=== PATIENT | female | born 1935 | race Caucasian/White ===

== ENCOUNTER → 2016-09-04 | Outpatient (REF) ==
[~2016-09-04] MED LIST: ASPIR-LOW81 MG PO; ASPIRIN E.C. 8181 MG PO; CALCIUM + D 6001 TA1 PO; CLARITIN 1010 MG/TAB PO; D3-5050000 IU PO; FLONASE NASAL S16 GM NS; MAXZIDE-25MG TA1 TAB PO; TRIAMTERENE W/H1 CAP PO; ZYRTEC 10MG PO
== END ==
LOC: ZLAB.WCH 14:55
DX: Z01.89 Encounter for other specified special examinations (principal)

== ENCOUNTER → 2017-01-04 | Outpatient (CLI) | payer MEDICARE, OTHER | LOC: COL.PUL 10:58 | DX: J84.112 Idiopathic pulmonary fibrosis (principal) ==

== ENCOUNTER → 2017-03-23 | Outpatient (REF) | LOC: ZLAB.WCH 18:00 | DX: Z01.89 Encounter for other specified special examinations (principal) ==

== ENCOUNTER → 2017-08-01 | Outpatient (CLI) | payer MEDICARE, OTHER | LOC: COL.PUL 07:47 | DX: R06.00 Dyspnea, unspecified (principal); R93.8 Abnormal findings on diagnostic imaging of other specified body structures; J84.10 Pulmonary fibrosis, unspecified; Z88.1 Allergy status to other antibiotic agents; Z88.2 Allergy status to sulfonamides ==

== ENCOUNTER → 2017-08-30 | Outpatient (CLI) | payer MEDICARE, OTHER | LOC: COL.PUL 12:39 | DX: R06.00 Dyspnea, unspecified (principal); R93.8 Abnormal findings on diagnostic imaging of other specified body structures; J84.10 Pulmonary fibrosis, unspecified ==

== ENCOUNTER → 2017-10-25 | Outpatient (REF) | LOC: ZLAB.WCH 16:02 | DX: Z01.89 Encounter for other specified special examinations (principal) ==

== ENCOUNTER → 2018-02-06 | Outpatient (REF) | LOC: ZLAB.WCH 15:53 | DX: Z01.89 Encounter for other specified special examinations (principal) ==

== ENCOUNTER → 2018-04-04 | Outpatient (REF) ==
[2018-04-04 15:03] LABS: THYROID STIMULATING HORMONE 2.51 uIU/mL (0.465-4.680)
== END ==
LOC: ZLAB.WCH 14:11
PROVIDERS: Internal Medicine
DX: Z01.89 Encounter for other specified special examinations (principal)

== ENCOUNTER → 2018-07-30 | Outpatient (REF) | LOC: ZLAB.WCH 16:19 | DX: Z01.89 Encounter for other specified special examinations (principal) ==

== ENCOUNTER 2019-10-13 14:47 | Inpatient (IN) | payer MEDICARE, OTHER ==
[~2019-10-13] VITALS: Ht 165.1 cm; Wt 94.3 kg
--- NOTE | 2019-10-13 14:56 | NUR ---
REPORT FROM SANG FREDERICK.
[2019-10-13] MEDS ORDERED: COZAAR 50MG50 MG/TAB PO (15:23)
[2019-10-13] MEDS ORDERED: PRIL40 PO (15:25)
[2019-10-13] MEDS ORDERED: VITAMIN C500 MG PO (15:26)
[2019-10-13] MEDS ORDERED: FERROCITE324 MG PO (15:27)
[2019-10-13] MEDS ORDERED: MULTIPLE VITAMI1 CAP PO (15:28)
[2019-10-13 19:00] VITALS: BP 114/43; PULSE 68; TEMP 97.7
--- NOTE | 2019-10-13 20:15 | NUR ---
Pt. sitting up in bed at this time. Pt. is A&OX3, assessment complete. IV to rt. ac patent, IV fluids infusing per orders. Pt. denies pain. Informed pt. that we will be giving her a unit of PRBC's and got consent form signed. Pt. denies further needs, call light within reach.
[2019-10-13 23:01] VITALS: BP 132/52; PULSE 91; TEMP 98.3
[2019-10-14] VITALS (21 sets, daily range): BP systolic 83–146; BP diastolic 30–94; PULSE 53–111; TEMP 97.9–98.7
--- NOTE | 2019-10-14 00:20 | NUR ---
One unit of PRBC's started at this time. Reviewed the s/s of blood transfusion reactions with the pt. The pt. voices understanding. VSS. WIll remain with pt. for first 15 minutes.
[2019-10-14 07:29] LABS: CALCIUM 8.2 mg/dL (8.4-10.2); CREATININE, serum 1.56 (0.52-1.25); POTASSIUM 4.8 mmol/L (3.4-5.0)
[2019-10-14 07:34] LABS: BASO # 0.1 (0.0-0.2); BASO % 0.4 % (0.0-2.0); EOS # 0.7 (0.0-0.7); EOS % 5.7 % (0-4.0); GRAN # 7.5 (1.4-6.5); GRAN % 61.4 % (42.2-75.2); LYMPH # 2.9 (1.2-3.4); LYMPH % 23.4 % (20.0-51.0); MEAN CELL VOLUME 95 fl (80.0-100.0); MEAN CORPUSCULAR HGB CONC 31 g/dl (33.0-37.0); PLATELET COUNT 196 K/mm3 (130-400); RED BLOOD COUNT 2.35 M/mm3 (4.10-5.30); REDCELL DISTRIBUTION WIDTH-CV 17.8 % (11.5-14.5)
[2019-10-14 07:43] LABS: HEMATOCRIT 22.3 % (37.0-47.0); MEAN CORPUSCULAR HEMOGLOBIN 30 pg (27.0-31.0)
[2019-10-14 08:48] LABS: HEMATOCRIT 21.7 % (37.0-47.0)
[2019-10-14 08:49] LABS: HEMOGLOBIN 6.7 g/dl (12.5-16.0)
--- NOTE | 2019-10-14 08:57 | NUR ---
Assessment complete. Pt sitting in bed, awake and alert watching television. States that she feels pretty good. We discussed her procedure today, she agreed to the upper GI EGD but refused a colonoscopy. She is aware of the proceduer today. She denies pain or discomfort at this time. IV site is CD&I, flushed well. Tubing was changed from blood tubing to fresh tubing with new bag of fluids. No other needs were expressed at this time. Call light is in reach.
--- NOTE | 2019-10-14 09:58 | NUR ---
MOHAMUD met with the patient to discuss discharge plan. The patient lives in [place] with her , José Miguel (ph#[phone]). She reports independence with ADLs and has a cane and CPAP from [facility] [place] [facility]. The patient's PCP is Dr. Alex Snider and she receives her medications at [facility]. She reports no difficulties obtaining her meds. The patient's advanced directives are in EMR. Her DPOA-HC is her son, Abebe (ph#[phone]). The patient plans to return home with her upon discharge. MOHAMUD contacted and updated the patient's , José Miguel. Al had no questions or concerns for SW at this time. MOHAMUD to ask for PT/OT to be ordered. MOHAMUD to continue to follow.
--- NOTE | 2019-10-14 11:00 | NUR ---
Pt went down to procedure at this time.
--- NOTE | 2019-10-14 12:15 | NUR ---
PT arrived back to the floor at this time. Initial vitals are stable. Will continue to monitor per post op protocol.
--- NOTE | 2019-10-14 19:00 | NUR ---
PT WAS STABLE THROUGH OUT TRANSFUSION. SHE CONTINUES TO BE STABLE. VITALS HAVE BEEN DOCUMENTED. NO COMPLAINTS FROM PATIENT AT THIS TIME. PAIN RATED AT A 5, PRN PAIN MEDICATION PROVIDEED. NO FURTHER NEEDS. CALL LIGHT IN REACH.
--- NOTE | 2019-10-14 21:10 | NUR ---
Pt. laying in bed at this time. Pt. is A&OX3, assessment complete. IV to rt. ac patent, IV fluids infusing per orders. Pt. reports back pain at a 7 and requested a muscle relaxer, gave per orders. Pt. denies further needs, call light within reach.
[2019-10-14 22:07] LABS: HEMATOCRIT 21.5 % (37.0-47.0); HEMOGLOBIN 6.8 g/dl (12.5-16.0)
--- NOTE | 2019-10-14 23:50 | NUR ---
ONE UNIT PRBC's started at this time. Reviewed s/s of a transfusion reaction with the pt. Pt. voices understanding. Will remain at bedside for next 15 minutes.
[2019-10-15] VITALS (12 sets, daily range): BP systolic 75–127; BP diastolic 28–62; PULSE 47–110; TEMP 97.6–98.7
[2019-10-15 07:07] LABS: BASO % 0.3 % (0.0-2.0); EOS # 0.8 (0.0-0.7); EOS % 8.5 % (0-4.0); GRAN # 4.8 (1.4-6.5); GRAN % 54.2 % (42.2-75.2); LYMPH # 2.4 (1.2-3.4); LYMPH % 26.8 % (20.0-51.0); MEAN CELL VOLUME 93 fl (80.0-100.0); MEAN CORPUSCULAR HGB CONC 32 g/dl (33.0-37.0); MEAN PLATELET VOLUME 10.7 fl (7.4-10.4); MONO # 0.9 (0.1-0.6); MONO % 9.6 % (1.7-9.3); PLATELET COUNT 146 K/mm3 (130-400); RED BLOOD COUNT 2.33 M/mm3 (4.10-5.30); REDCELL DISTRIBUTION WIDTH-CV 18.7 % (11.5-14.5)
[2019-10-15 07:23] LABS: HEMATOCRIT 21.7 % (37.0-47.0); MEAN CORPUSCULAR HEMOGLOBIN 30 pg (27.0-31.0)
[2019-10-15 07:33] LABS: CALCIUM 7.6 mg/dL (8.4-10.2); CREATININE, serum 2.05 (0.52-1.25); POTASSIUM 4.3 mmol/L (3.4-5.0)
--- NOTE | 2019-10-15 09:16 | NUR ---
Pt awake and alert upon entry, has C/O back pain at this time, shift assessments complete, left Pt call light in reach, bed in lowest position.
--- NOTE | 2019-10-15 14:32 | NUR ---
Water Plant Operator followed up with patient to review PT recommendation for outpatient therapy upon discharge. Patient states she has done outpatient therapy at [facility] and [facility] in [place]. Patient would be open to both but not sure at this time which one she would want to go with. SW will continue to follow.
[2019-10-15 16:48] LABS: INR 0.9 (0.8-3.0); PROTHROMBIN TIME 10.3 SECONDS (9.7-12.8)
[2019-10-15 16:52] LABS: BILIRUBIN UNCONJUGATED 0.4 mg/dL (0.0-1.1); BILIRUBIN,DIRECT 0.1 mg/dL (0.0-0.4); BILIRUBIN,TOTAL 0.5 mg/dL (0.0-1.0); TOTAL PROTEIN 5.7 gm/dL (6.4-8.2)
--- NOTE | 2019-10-15 17:14 | NUR ---
Pt left AM, reported that her IV was removed prior to leaving the building.
--- NOTE | 2019-10-15 20:03 | NUR ---
Pt resting in the room today, has C/O pain in her lower back, medications given for relief with good results. One unit of LPRC was transfused without issues, no other complaints. VS have remained stable with some low BPs noted, bolus of fluid given.
[2019-10-15 21:33] LABS: HEMOGLOBIN 8.4 g/dl (12.5-16.0)
--- NOTE | 2019-10-15 23:04 | NUR ---
PT AMBULATES IN ROOM TO BATHROOM AND THEN BACK TO BED, GAIT STEADY. C/O PAIN LOWER BACK 12/11 SPASMATIC. CALL LIGHT WITHIN REACH.
--- NOTE | 2019-10-15 23:19 | NUR ---
Reports 7/10 back pain. PRovided with PRN norco at this time.
[2019-10-16] VITALS (7 sets, daily range): BP systolic 117–142; BP diastolic 55–68; PULSE 61–108; TEMP 97.3–98.7
--- NOTE | 2019-10-16 05:40 | NUR ---
NOTIFIED DR. DAVIDSON IN REFERENCE TO PT FEELING NAUSEA AND VOMITING. RECEIVED ORDER FOR ZOFRAN 4MG IV EVERY 6 HOURS PRN FOR NAUSEA/VOMITING.
--- NOTE | 2019-10-16 07:00 | NUR ---
PT SLEPT MOST OF THE NIGHT AFTER GIVING A PAIN MEDICATION. PT WOKE UP ABOUT 0500 AND WAS ASSISTED TO THE BATHROOM. PT REQUESTED PAIN MEDICATION AND AFTER GIVING PAIN MEDICATION, PATIENT FELT NAUSEAD. PT WAS GIVEN ZOFRAN FOR NAUSEA. PT RESTING IN BED WITH CALL LIGHT WITHIN REACH.
[2019-10-16 07:57] LABS: BASO % 0.3 % (0.0-2.0); EOS # 0.9 (0.0-0.7); EOS % 8.8 % (0-4.0); GRAN % 60.8 % (42.2-75.2); LYMPH % 19.8 % (20.0-51.0); MEAN CELL VOLUME 91 fl (80.0-100.0); MEAN CORPUSCULAR HGB CONC 32 g/dl (33.0-37.0); MEAN PLATELET VOLUME 10.8 fl (7.4-10.4); MONO % 9.6 % (1.7-9.3); PLATELET COUNT 158 K/mm3 (130-400); RED BLOOD COUNT 2.69 M/mm3 (4.10-5.30); REDCELL DISTRIBUTION WIDTH-CV 18.2 % (11.5-14.5)
[2019-10-16 08:03] LABS: HEMATOCRIT 24.6 % (37.0-47.0); HEMOGLOBIN 7.9 g/dl (12.5-16.0); MEAN CORPUSCULAR HEMOGLOBIN 29 pg (27.0-31.0)
--- NOTE | 2019-10-16 08:22 | NUR ---
Pt awake and alert upon entry, has C/O pain in lower back, and some gastric discomfort, shift assessments complete, left Pt call light in reach bed in lowest position.
[2019-10-16 08:34] LABS: ALBUMIN 2.9 gm/dL (3.5-5.0); BILIRUBIN,TOTAL 0.7 mg/dL (0.0-1.0); CALCIUM 7.9 mg/dL (8.4-10.2); CREATININE, serum 1.47 (0.52-1.25); POTASSIUM 4.2 mmol/L (3.4-5.0); TOTAL PROTEIN 5.5 gm/dL (6.4-8.2)
--- NOTE | 2019-10-16 12:29 | NUR ---
First visit from the polisher numeral. No needs right now.
--- NOTE | 2019-10-16 16:28 | NUR ---
Guest Attendant spoke with Hospitalist who advised patient wants to discharge to the [facility]. MOHAMUD met with patient who confirmed this and thought her Al could provide transport. MOHAMUD contacted Selin at [facility] and faxed referral. Selin contacted MOHAMUD and advised if they can accept, it would be tomorrow. Selin requested note from GI and MOHAMUD faxed. Selin advised Dr. Snider questioned if patient's H&H was stable and if she would need a IVC filter. MOHAMUD communicated this to MAGALIE Vera who will speak with Hospitalist. MOHAMUD contacted patient's , Al to provide update. Al confirmed that he would be able to transport patient to [facility]. SW to continue to follow.
--- NOTE | 2019-10-16 19:43 | NUR ---
Pt resting in the room today, has some C/O pain during the day, medications given for relief, no other issues noted. VS have remained stable.
[2019-10-17] VITALS (12 sets, daily range): BP systolic 117–179; BP diastolic 50–71; PULSE 82–107; TEMP 97.1–98.9
[2019-10-17 07:35] LABS: CREATININE, serum 1.37 (0.52-1.25); POTASSIUM 3.9 mmol/L (3.4-5.0)
[2019-10-17 07:40] LABS: BASO % 0.3 % (0.0-2.0); EOS # 0.7 (0.0-0.7); EOS % 8.7 % (0-4.0); GRAN # 4.5 (1.4-6.5); GRAN % 57.5 % (42.2-75.2); LYMPH # 1.8 (1.2-3.4); LYMPH % 23.3 % (20.0-51.0); MEAN CELL VOLUME 93 fl (80.0-100.0); MEAN CORPUSCULAR HGB CONC 33 g/dl (33.0-37.0); MEAN PLATELET VOLUME 10.9 fl (7.4-10.4); MONO # 0.7 (0.1-0.6); MONO % 9.3 % (1.7-9.3); PLATELET COUNT 122 K/mm3 (130-400); RED BLOOD COUNT 2.24 M/mm3 (4.10-5.30); REDCELL DISTRIBUTION WIDTH-CV 18.3 % (11.5-14.5)
[2019-10-17 07:41] LABS: HEMATOCRIT 20.9 % (37.0-47.0); MEAN CORPUSCULAR HEMOGLOBIN 30 pg (27.0-31.0)
[2019-10-17 07:43] LABS: HEMOGLOBIN 6.8 g/dl (12.5-16.0)
--- NOTE | 2019-10-17 09:00 | NUR ---
Patient is awake and alert in bed, just finished breakfast. Denies having any pain. Did earlier receive call from lab notifiying that HgB was low. Providers are aware. Patient is eager for discharge and voices she misses her . Call light and personal items are within reach.
--- NOTE | 2019-10-17 12:35 | NUR ---
Follow up visit from the retail department manager. Chaplain willsyed with patient. No other needs right now.
--- NOTE | 2019-10-17 12:58 | NUR ---
Lead Ingot Molder spoke with Hospitalist who advised patient not ready for discharge today. MOHAMUD called Selin at [facility] and left a message. SW also faxed updates. MOHAMUD contacted Al and gave him an update. SW to continue to follow.
--- NOTE | 2019-10-17 20:03 | NUR ---
Report given to Yoli BYRD.
--- NOTE | 2019-10-17 21:10 | NUR ---
Initial shift assessment done- pt upset tonight- states she was under the impression Dr Tinsley was going to come and talk with her tonight- states she has alot of questions, and she feels the most comfortable with him because he has done all her procedures-- will let day shift know of her concerns- does not look like he is recreation officer this weekened- no stools tatyana, Tele on. SCD,s on,, was given a pain pill for back pain at this time
--- NOTE | 2019-10-18 04:48 | NUR ---
Medicated around 022 with another [place] for back pain- Up to bathroom with standby assist- wearing CPAP all night
[2019-10-18 05:14] VITALS: BP 112/62; PULSE 60; TEMP 97.4
[2019-10-18 07:21] LABS: BASO % 0.5 % (0.0-2.0); EOS # 0.9 (0.0-0.7); EOS % 9.9 % (0-4.0); GRAN # 4.4 (1.4-6.5); GRAN % 49.7 % (42.2-75.2); LYMPH # 2.4 (1.2-3.4); LYMPH % 27.3 % (20.0-51.0); MEAN CELL VOLUME 94 fl (80.0-100.0); MEAN CORPUSCULAR HGB CONC 32 g/dl (33.0-37.0); MONO # 1.1 (0.1-0.6); PLATELET COUNT 197 K/mm3 (130-400); RED BLOOD COUNT 2.68 M/mm3 (4.10-5.30); REDCELL DISTRIBUTION WIDTH-CV 18.4 % (11.5-14.5)
[2019-10-18 07:24] VITALS: BP 144/59; PULSE 92; TEMP 98.3
[2019-10-18 07:26] LABS: HEMATOCRIT 25.1 % (37.0-47.0); HEMOGLOBIN 8.1 g/dl (12.5-16.0); MEAN CORPUSCULAR HEMOGLOBIN 30 pg (27.0-31.0)
[2019-10-18 07:40] LABS: CALCIUM 8.5 mg/dL (8.4-10.2); CREATININE, serum 1.31 (0.52-1.25); POTASSIUM 3.9 mmol/L (3.4-5.0)
--- NOTE | 2019-10-18 10:00 | NUR ---
Patient is awake and alert in room. Have received a call from both son and regarding patients status. Did give phone number for son to Vee MEJIAS to speak with him regarding testing. Spouse wanted update and transferred to patient room. She did ambulate in halls with therapy and was up to recliner.
[2019-10-18 11:38] VITALS: BP 131/56; PULSE 87; TEMP 99
[2019-10-18 16:41] VITALS: BP 130/69; PULSE 87; TEMP 98.6
--- NOTE | 2019-10-18 19:06 | NUR ---
Report given to oncoming shift.
[2019-10-18 19:11] LABS: HEMATOCRIT 28.3 % (37.0-47.0); HEMOGLOBIN 8.9 g/dl (12.5-16.0)
[2019-10-18 19:15] VITALS: BP 139/86; PULSE 73; TEMP 98
--- NOTE | 2019-10-18 20:30 | NUR ---
Initial shift assessment done- Up to bathroom with just standby assist- states having some incontinence of urine- requesting depends for the night-- states back pain 10/11 -Joice given as ordered, Blood sugar 150-no insulin needed at this time. SCd,s on, tele on
[2019-10-18 23:15] VITALS: BP 150/70; PULSE 86; TEMP 98.4
--- NOTE | 2019-10-19 04:46 | NUR ---
Has been resting well most of the night- VSS, denies need for any pain meds at this time-
[2019-10-19 05:31] VITALS: BP 145/47; PULSE 64; TEMP 98.1
[2019-10-19 06:43] LABS: BASO % 0.3 % (0.0-2.0); EOS % 10.8 % (0-4.0); GRAN # 4.6 (1.4-6.5); GRAN % 51.5 % (42.2-75.2); LYMPH # 2.3 (1.2-3.4); LYMPH % 25.6 % (20.0-51.0); MEAN CELL VOLUME 93 fl (80.0-100.0); MEAN CORPUSCULAR HGB CONC 32 g/dl (33.0-37.0); MEAN PLATELET VOLUME 10.4 fl (7.4-10.4); MONO % 11.5 % (1.7-9.3); PLATELET COUNT 183 K/mm3 (130-400); RED BLOOD COUNT 2.88 M/mm3 (4.10-5.30); REDCELL DISTRIBUTION WIDTH-CV 18.3 % (11.5-14.5)
[2019-10-19 06:48] LABS: HEMATOCRIT 26.9 % (37.0-47.0); HEMOGLOBIN 8.6 g/dl (12.5-16.0); MEAN CORPUSCULAR HEMOGLOBIN 30 pg (27.0-31.0)
[2019-10-19 07:03] LABS: CALCIUM 8.7 mg/dL (8.4-10.2); CREATININE, serum 1.25 (0.52-1.25); POTASSIUM 3.9 mmol/L (3.4-5.0)
[2019-10-19 13:36] VITALS: BP 120/64; PULSE 86; TEMP 97.3
[2019-10-19 16:00] VITALS: BP 140/68; PULSE 87; TEMP 98.3
--- NOTE | 2019-10-19 19:08 | NUR ---
Report given to oncoming shift. Did have shower today and is sitting up in recliner watching TV.
[2019-10-19 19:28] VITALS: BP 147/80; PULSE 78; TEMP 98.6
[2019-10-19 20:11] LABS: CALCIUM 8.9 mg/dL (8.4-10.2); CREATININE, serum 1.7 (0.52-1.25); POTASSIUM 3.9 mmol/L (3.4-5.0)
--- NOTE | 2019-10-19 23:24 | NUR ---
PT IS PREPPING FOR A COLONOSCOPY THEREFORE SHE WILL NOT BE SLEEPING MUCH AND WILL BE ON AND OFF HER BIPAP THORUGHOUT THE NIGHT. PT IS IN NO DISTRESS AT THIS MOMENT. WILL CONTINUE TO MONITOR AND ASSESS
[2019-10-19 23:32] VITALS: BP 137/62; PULSE 84; TEMP 98.1
--- NOTE | 2019-10-19 23:38 | NUR ---
NOTIFIED Cesar HERMOSILLO THAT THE PATIENT IS NOT TOLERATING THE BOWEL PREP AND IS VOMITING. PATIENT HAS ONLY DRANK 800 MLS OF 4000 MLS. PHENERGEN WAS GIVEN TO THE PATIENT
[2019-10-19 23:40] LABS: COLLECTION METHOD CLEAN CATCH
[2019-10-19 23:45] LABS: PH 5 (5-8); SQUAMOUS EPITHELIAL None Seen /hpf; URINE APPEARANCE Clear; URINE BACTERIA None Seen /hpf; URINE BILIRUBIN Negative (NEGATIVE); URINE BLOOD 1+ (NEGATIVE); URINE COLOR Colorless; URINE GLUCOSE Negative (NEGATIVE); URINE KETONE Negative (NEGATIVE); URINE LEUKOCYTE ESTERASE Negative (NEGATIVE); URINE NITRATE Negative (NEGATIVE); URINE PROTEIN(semi-quant) Negative (NEGATIVE); URINE RBC None Seen /hpf; URINE UROBILINOGEN Negative (NEGATIVE)
--- NOTE | 2019-10-20 02:45 | NUR ---
PATIENT IS STILL WORKING ON THE BOWEL PREP AT THIS TIME.
--- NOTE | 2019-10-20 03:11 | NUR ---
PATIENT CALLED AND SHE IS NAUSIOUS AND CANT DRINK ANYMORE. PATIENT SAID THAT HER BOWEL MOVEMENTS ARE STILL HARD.
[2019-10-20 04:20] VITALS: BP 137/62; PULSE 95; TEMP 98.3
--- NOTE | 2019-10-20 04:27 | NUR ---
patient went to the bathroom and still having formed dark stools. instructed patient to keep drinking the bowel prep and she says she is working on it
--- NOTE | 2019-10-20 05:52 | NUR ---
PATIENT HAS BEEN WORKING ON BOWEL PREP THROUGHOUT THE NIGHT. SHE BATTLED SOME NAUSEA AND VOMITING BUT AFTER PHENERGEN AND ZOFRAN SHE WAS ABLE TO GET MORE OF THE BOWEL PREP DOWN. AFTER SEVERAL REMINDERS THE PATIENT TAKES MORE DRINKS. PATIENT EDUCATED THAT IT IS IMPORTANT TO GET THIS DOWN FOR HER PROCEDURE DOWN. BOWEL MOVEMENTS ARE STILL BROWN IN COLOR BUT LOOSE WITH FEW CHUNKS. WILL REPORT OFF TO DAY SHIFT UPON THEIR ARRIVAL.
[2019-10-20 07:25] VITALS: BP 149/72; PULSE 118; TEMP 97.8
--- NOTE | 2019-10-20 07:52 | NUR ---
Patient scheduled for colonoscopy @ [address] Maher. Patient has not completed bowel prep @ this time. Stools Watery but unable to see through with formed sediment. Dr. Maher notified. To have patient complete bowel prep in the next hour and hopefully complete test as scheduled. If unable to complete prep or stool continues with sediment will do procedure 10/21/19. Dr. Maher to notify hospitalist.
[2019-10-20 08:38] LABS: BASO % 0.3 % (0.0-2.0); EOS # 0.3 (0.0-0.7); EOS % 2.5 % (0-4.0); GRAN # 7.9 (1.4-6.5); GRAN % 75.2 % (42.2-75.2); LYMPH # 1.5 (1.2-3.4); LYMPH % 14.1 % (20.0-51.0); MEAN CELL VOLUME 95 fl (80.0-100.0); MEAN CORPUSCULAR HGB CONC 32 g/dl (33.0-37.0); MEAN PLATELET VOLUME 9.5 fl (7.4-10.4); MONO # 0.8 (0.1-0.6); MONO % 7.3 % (1.7-9.3); PLATELET COUNT 237 K/mm3 (130-400); RED BLOOD COUNT 2.86 M/mm3 (4.10-5.30); REDCELL DISTRIBUTION WIDTH-CV 18.2 % (11.5-14.5)
[2019-10-20 08:40] LABS: HEMATOCRIT 27.1 % (37.0-47.0); HEMOGLOBIN 8.6 g/dl (12.5-16.0); MEAN CORPUSCULAR HEMOGLOBIN 30 pg (27.0-31.0)
[2019-10-20 08:42] LABS: CALCIUM 8.4 mg/dL (8.4-10.2); CREATININE, serum 1.38 (0.52-1.25); POTASSIUM 3.7 mmol/L (3.4-5.0)
--- NOTE | 2019-10-20 11:51 | NUR ---
Coping Machine Operator faxed updates to Selin at [facility]. Selin advised they are able to accept as long as patient's hemoglobin is stable. MOHAMUD spoke with MAGALIE Vera who advised patient to have colonoscopy today and Cardiology has been consulted for patient. SW to continue to follow.
[2019-10-20 16:01] VITALS: BP 127/58; PULSE 81; TEMP 98.5
[2019-10-20 19:14] LABS: HEMATOCRIT 25.8 % (37.0-47.0); HEMOGLOBIN 8.2 g/dl (12.5-16.0)
[2019-10-20 19:32] VITALS: BP 131/48; PULSE 84; TEMP 99.3
--- NOTE | 2019-10-20 22:35 | NUR ---
attempted to reach son of the patient. did not answer
[2019-10-20 23:33] VITALS: BP 136/60; PULSE 62; TEMP 98.9
[2019-10-21 04:30] VITALS: BP 116/61; PULSE 73; TEMP 98.7
--- NOTE | 2019-10-21 05:23 | NUR ---
PATIENT HAS RESTED THROUGHOUT THE EVENING. REPORTED SOME PAIN AT THE BEGINNING OF THE SHIFT AND A PRN PAIN PILL WAS ADMINISTERED TO THE PATIENT. SINCE THE PAIN MEDICATION, SHE HAS BEEN RESTING PEACEFULLY. PATIENT WORE HER HOME CPAP WHILE SHE RESTED. DENIES ANY OTHER NEEDS AT THIS TIME. WILL REPORT OFF TO DAY SHIFT UPON THEIR ARRIVAL.
[2019-10-21 07:23] LABS: BASO % 0.4 % (0.0-2.0); EOS # 0.6 (0.0-0.7); EOS % 8.1 % (0-4.0); GRAN # 4.2 (1.4-6.5); GRAN % 53.5 % (42.2-75.2); LYMPH # 2.2 (1.2-3.4); LYMPH % 28.3 % (20.0-51.0); MEAN CELL VOLUME 98 fl (80.0-100.0); MEAN CORPUSCULAR HGB CONC 31 g/dl (33.0-37.0); MONO # 0.7 (0.1-0.6); MONO % 9.3 % (1.7-9.3); PLATELET COUNT 219 K/mm3 (130-400); RED BLOOD COUNT 2.63 M/mm3 (4.10-5.30); REDCELL DISTRIBUTION WIDTH-CV 18.3 % (11.5-14.5)
[2019-10-21 07:26] LABS: HEMATOCRIT 25.7 % (37.0-47.0); MEAN CORPUSCULAR HEMOGLOBIN 30 pg (27.0-31.0)
[2019-10-21 07:29] LABS: CALCIUM 8.1 mg/dL (8.4-10.2); CREATININE, serum 1.3 (0.52-1.25); POTASSIUM 3.3 mmol/L (3.4-5.0)
[2019-10-21 07:35] VITALS: BP 145/53; PULSE 54; TEMP 97.6
--- NOTE | 2019-10-21 09:00 | NUR ---
Assessment complete. Pt sitting up in bed at this time. She is alert and oriented at this time. Her chronic pain is currently rated at a 5 out of 10, PRN pain medication provided. States she feels jeffery, just wanted to go home. She was worried about having a sore on her buttox, I assessed and only saw reddness. Got her up to the recliner as well. No other needs were expressed at this time. Call light is in reach.
--- NOTE | 2019-10-21 11:51 | NUR ---
Hydroponics Grower faxed updates to [facility]. MOHAMUD to continue to follow.
[2019-10-21 12:02] VITALS: BP 142/64; PULSE 82; TEMP 98.7
[2019-10-21 17:35] VITALS: BP 156/86; PULSE 113; TEMP 98.6
--- NOTE | 2019-10-21 18:34 | NUR ---
Pt has had no issues since arriving back from tagged red blood cell test. She has not complained of pain or requested pain medication. tele called to notify of HR in the 140s, she was ambulatory to restroom at time. HAs been stable since. No other issues. States she is comfortable. Call light is in reach.
[2019-10-21 21:28] VITALS: BP 152/74; PULSE 82; TEMP 98.8
[2019-10-21 23:41] VITALS: BP 156/96; PULSE 94; TEMP 98.3
[2019-10-22 04:03] VITALS: BP 133/65; PULSE 64; TEMP 98.4
--- NOTE | 2019-10-22 06:22 | NUR ---
Patient was able to rest this shift. Patient did request one [place] for pain managment for low back pain. No othe complaints this shift.
[2019-10-22 06:40] LABS: BASO % 0.4 % (0.0-2.0); EOS # 0.7 (0.0-0.7); EOS % 8.9 % (0-4.0); GRAN # 3.7 (1.4-6.5); GRAN % 50.7 % (42.2-75.2); LYMPH # 2.1 (1.2-3.4); LYMPH % 29.2 % (20.0-51.0); MEAN CELL VOLUME 97 fl (80.0-100.0); MEAN CORPUSCULAR HGB CONC 31 g/dl (33.0-37.0); MEAN PLATELET VOLUME 9.4 fl (7.4-10.4); MONO # 0.8 (0.1-0.6); MONO % 10.5 % (1.7-9.3); PLATELET COUNT 234 K/mm3 (130-400); RED BLOOD COUNT 2.64 M/mm3 (4.10-5.30); REDCELL DISTRIBUTION WIDTH-CV 17.6 % (11.5-14.5)
[2019-10-22 06:47] LABS: HEMATOCRIT 25.5 % (37.0-47.0); HEMOGLOBIN 7.9 g/dl (12.5-16.0); MEAN CORPUSCULAR HEMOGLOBIN 30 pg (27.0-31.0)
[2019-10-22 06:50] LABS: CALCIUM 8.3 mg/dL (8.4-10.2); CREATININE, serum 1.34 (0.52-1.25); POTASSIUM 4.1 mmol/L (3.4-5.0)
[2019-10-22 07:54] VITALS: BP 170/87; PULSE 85; TEMP 98.3
--- NOTE | 2019-10-22 08:30 | NUR ---
Assessment completed, alert/oriented, vital signs stable, denies pain or discomfort, hemaglobin is 7.9 this morning which is down from 9.0 last night, she denies feeling lightheaded or dizzy, heart RRR/ distal pulses are palpable, does have some 1-2+ BLE edema which she stated is new sence yesterday, she is sitting up in the recliner eating breakfast, denies other needs at this time
[2019-10-22 11:56] VITALS: BP 151/72; PULSE 82; TEMP 98.4
--- NOTE | 2019-10-22 16:01 | NUR ---
Chain Hooker spoke with MAGALIE Baxter who advised patient is ready for discharge today. SW met with patient who reports she wants to go home now instead of [facility] as there is a test she needs done and does not want to delay it by going to [facility]. Patient has been walking 400 ft with therapy and states she feels comfortable returning home upon discharge. SW spoke with patient about Home Health and she declined services. SW contacted patient's , Al who advised that he was comfortable with discharge plan if that's what patient wanted to do. SW met with patient and read IM form aloud. Patient verbalized understanding and provided verbal consent as signature. SW placed form in chart and provided copy to patient. MOHAMUD spoke with ROCHELLE York about contacting Al closer to time of discharge. No additional needs at this time.
[2019-10-22] MEDS ORDERED: COZAAR 25MG25 MG/TAB PO (16:02)
[2019-10-22] MEDS ORDERED: NORCO 325 MG-51 TAB PO (16:03)
--- NOTE | 2019-10-22 16:45 | NUR ---
Patient discharging, instructed to follow up with PCP and GI as recommended/ offices were closed and we were unable to make these appointments for her/ instructed her to call tommorow morning to schedule, we discussed medication changes and new meds sent to pharmacy for her, IV's and tele removed, she is ambulatory and her is coming to pick her up, I will escort her out the door when her ride arrives
== END 2019-10-22 17:57 | disposition home or self-care (01) | DRG 378 ==
LOC: MEDICAL 14:47
PROVIDERS: Internal Medicine; Internal Medicine Gastroenterology; Nurse Practitioner Family; Physician Assistant; ADMIT Hospitalist
PROC: 0DJ08ZZ Inspection of Upper Intestinal Tract, Via Natural or Artificial Opening Endoscopic (ICD-10-PCS; principal; 2019-10-14 11:30)
PROC: 0DJD8ZZ Inspection of Lower Intestinal Tract, Via Natural or Artificial Opening Endoscopic (ICD-10-PCS; 2019-10-20)
DX: K92.2 Gastrointestinal hemorrhage, unspecified (principal); N39.0 Urinary tract infection, site not specified; E87.2 Acidosis; K86.2 Cyst of pancreas; B96.20 Unspecified Escherichia coli [E. coli] as the cause of diseases classified elsewhere; E66.9 Obesity, unspecified; M85.80 Other specified disorders of bone density and structure, unspecified site; E78.5 Hyperlipidemia, unspecified; J30.9 Allergic rhinitis, unspecified; G89.29 Other chronic pain; M51.36 Other intervertebral disc degeneration, lumbar region; G47.33 Obstructive sleep apnea (adult) (pediatric); I12.9 Hypertensive chronic kidney disease with stage 1 through stage 4 chronic kidney disease, or unspecified chronic kidney disease; N18.3 Chronic kidney disease, stage 3 (moderate); E11.22 Type 2 diabetes mellitus with diabetic chronic kidney disease; D50.9 Iron deficiency anemia, unspecified; K44.9 Diaphragmatic hernia without obstruction or gangrene; K22.2 Esophageal obstruction; I95.9 Hypotension, unspecified; D64.9 Anemia, unspecified; T45.515A Adverse effect of anticoagulants, initial encounter; R11.2 Nausea with vomiting, unspecified; I49.5 Sick sinus syndrome; Z86.718 Personal history of other venous thrombosis and embolism; Z79.82 Long term (current) use of aspirin; Z79.01 Long term (current) use of anticoagulants
CPT/HCPCS: 99222-AI; 99231-AI; 99232-AI; 99233-AI; 99239; A9560; C9113; J0696; J1815; J2405; J2550; J2704; J3010; J7030; P9016

== ENCOUNTER 2024-01-18 02:51 | Inpatient (IN) | payer MEDICARE, OTHER ==
[2024-01-18] VITALS (860 sets, daily range): BP systolic 98–209; BP diastolic 61–125; PULSE 58–99; TEMP 96.2–98.5; O2SAT 62–100
[~2024-01-18] VITALS: Ht 165.1 cm; Wt 81.8 kg
[~2024-01-18 02:51] MED LIST changes: +COZAAR 25MG25 MG/TAB PO; +COZAAR 50MG50 MG/TAB PO; +FERROCITE324 MG PO; +MULTIPLE VITAMI1 CAP PO; +NORCO 325 MG-51 TAB PO; +PRIL40 PO; +VITAMIN C500 MG PO
[2024-01-18] MEDS ORDERED: Etomidate 20 MG/10 ML VIAL IV ONE (03:00)
[2024-01-18] MEDS ORDERED: Succinylcholine PF 200 MG/10 ML SYRINGE IV ONE (03:02)
[2024-01-18 03:36] LABS: ALANINE AMINOTRANSFERASE 13 U/L (0-55); ALKALINE PHOSPHATASE 47 U/L (40-150); ANION GAP 15 mmol/L (7-16); AST,SGOT 22 U/L (5-34); BILIRUBIN,TOTAL 0.6 mg/dL (0.2-1.2); BLOOD UREA NITROGEN 36 mg/dL (10-20); CALCIUM 9.8 mg/dL (8.4-10.2); CHLORIDE 103 mEq/L (98-107); CREATININE, serum 1.79 mg/dL (0.57-1.11); GLUCOSE 272 mg/dL (70-99); POTASSIUM 4.6 mEq/L (3.5-4.5); SODIUM 138 mEq/L (136-145); TOTAL PROTEIN 8.3 g/dl (6.2-8.1)
[2024-01-18 03:42] LABS: TROPONIN-I 0.013 ng/mL (0.00-0.033)
[2024-01-18 03:46] LABS: LIPASE < 7 U/L (8-78)
[2024-01-18 04:04] LABS: URINE APPEARANCE CLEAR (CLEAR/HAZY); URINE BLOOD 1+ (NEGATIVE); URINE COLOR YELLOW (YELLOW); URINE GLUCOSE 2+ (NEGATIVE); URINE KETONE TRACE (NEGATIVE); URINE NITRATE NEGATIVE (NEGATIVE); URINE PROTEIN(semi-quant) 2+ (NEGATIVE); URINE UROBILINOGEN 0.2 E.U/dL (0.2-1.0)
[2024-01-18 04:17] LABS: ARTERIAL BLD GAS O2 SATURATION 98.7 % (92-100); ARTERIAL BLD GAS TCO2 CT 23.4; ARTERIAL BLOOD GAS HCO3 22.5 meq/L (22-26); ARTERIAL BLOOD GAS PCO2 29.6 mmHg (35-45); ARTERIAL BLOOD GAS PO2 143.1 mmHg (80-100)
[2024-01-18] MEDS ORDERED: levETIRAcetam 500 MG in Syringe 1 EACH IV ONE (04:30)
--- NOTE | 2024-01-18 04:31 | NUR ---
THIS RT CALLED TO ER FOR ARRIVAL OF PATIENT VIA EMS. PER RN, THE EMS IN REPORT STATED "SHE IS BREATHING ON HER OWN". PATIENT WAS UNCONCIOUS AND SNORING DURING THIS TIME OF ARRIVAL ON RA. PATIENT ALSO HAD NPA IN AT THIS TIME. DR BRADLEY SAID NO GAG, AND TO PROCEED WITH INTUBATION. INTUBATION WAS DONE WITH 8.0, 25 @ TH. THIS RT BAGGED PATIENT TO CT AND BACK, DURING THIS TIME TUBE ADVANCED IN AT 27 @ TH (SHOWN IN INITIAL CXR). TUBE THEN BROUGHT BACK TO 24 @ TH. NO THICK SECRETIONS TAKEN OUT AT THIS TIME. DIM BREATH SOUNDS TUNG. PATIENT INITIAL VENT SETTINGS 400, R20, PEEP 5, 60%. AFTER BLOOD GAS AND VENT CHANGES, CURRENT VENT SETTINGS ARE 400, R16, PEEP 5, 40%. PATIENT VITALS REMAIN THE SAME AT THIS TIME.
[2024-01-18 04:52] LABS: COLLECTION METHOD CATHETER
[2024-01-18] MEDS ORDERED: Naloxone 0.4 MG/ML VIAL IV PRN (05:45)
[2024-01-18] MEDS ORDERED: fentaNYL 100 ML IV SCH (05:45)
--- NOTE | 2024-01-18 06:22 | NUR ---
Patient arrives to the unit from the ED intubated and sedated. Initial v/s WNL. Patient is in 2 points soft wrist restraints to prevent pulling at lines and tubes. Report recieved from ROCHELLE Kingston. Patient is currently running propofol at 40 mcg/kg/min for ventilator sedation.
--- NOTE | 2024-01-18 07:48 | NUR ---
Patient is resting with eyes closed, no purposeful movements, pupils fixed at a 4mm, ETT at 23 at the teeth, OG at 55 at the lip (clamped), levy draing appropriately yellow clear urine. Propofol infusing into right hand IV without complications. Son is bedside, no questions or concerns at this time.
--- NOTE | 2024-01-18 08:22 | NUR ---
MTN was notified of referral, # is [phone]. Please call if family is leaning toward comfort care or anything else changes.
--- NOTE | 2024-01-18 09:54 | NUR ---
harvest worker attended interdisciplinary clinical rounding with Dr. Aguirre. Patient had a significant brain bleed, patient is on comfort care until remaining family members can come visit. Patient's son, Nathan, was present during this conversation. Nathan reported he is uncertain if he or his brother is the DPOA-HC. MOHAMUD provided her phone number to contact for support. Nathan left the hospital to find documentation for DPOA-HC as he attempted to call the commercial attorney but he had not answered. MOHAMUD notified patient's nurse. Nathan (son) P# [phone]. MOHAMUD will continue to follow.
--- NOTE | 2024-01-18 10:07 | NUR ---
MTN updated, family is leaning toward comfort care.
--- NOTE | 2024-01-18 10:43 | NUR ---
Updated MTN again with family leaning toward comfort care.
--- NOTE | 2024-01-18 12:45 | NUR ---
This RN checking in with patient's family re: goals of care. Talked with patient's friend, Luciana. Luciana stated that she was not able to get in contact with patient's , José Miguel, so another friend was going to check on him. Patient's son, Abebe, is on a trip in [place]. The patient's other son, Yoseph, had to leave hospital for a little bit to take his work vehicle back. She was not sure when Yoseph would return. Luciana advised that José Miguel was not able to drive due to macular degeneration & his own health issues. Luciana provided contact numbers for Al at home & his cell. Attempted to contact number for Abebe with no answer. Attempted to contact with number provided, but Al answered. Brief discussion with Al on how patient was doing & the need to talk with the patient's decision makers. Asked Al if he was planning to come see patient today & he stated that he was not due to not being able to drive. Made contact with Yoseph on an alternative number. He states that he would be arriving back at hospital around 1400 & that he would text his brother about a conference call. Dr. Aguirre provided with an update.
--- NOTE | 2024-01-18 14:10 | NUR ---
Family meeting at this time. Yoseph present in room with other son, Abebe, on speaker phone. Al on another speaker phone. Dr. Aguirre, Rossy (MOHAMUD) & this author at bedside for meeting. Dr. Aguirre discussed patient's current condition, stroke, prognosis & the recommendation to proceed with comfort care. Abebe (primary DPOA) agreed with moving forward with comfort care after Dr. Aguirre answered some clarifing questions. Abebe stated that he was contacted about organ donation this morning & Dr. Aguirre advised that [facility] would have to answer his questions about that. All in agreement to proceed with comfort care. Dr. Aguirre exited the room. Discussed with patient's , José Miguel, if he wanted to come see the patient prior to starting the comfort care process. He stated that he did not want to come see her & was tearful. Phone handed to Rossy (MOHAMUD) to finish the conversation. Discussed with the patient's two sons about further consents & conversations related to comfort care process. Abebe is listed as primary DPOA; he agreed that Yoseph can make decisions in his absence should the need arise. Rossy comes back in to room. Yoseph asked when comfort care could be started. Went over the specifics of extubation & medications of comfort care. Yoseph wanting to start the process soon; advised that we had a few phones calls to make prior to starting the process. Yoseph asked about organ donation; advised that hospital staff was not allowed to discuss donation with him, but calling MTN was one of the phone calls the hospital needed to make. All questions answered & support provided.
[2024-01-18] MEDS ORDERED: LORazepam 2 MG/ML 1 ML VIAL IV PRN (15:15)
[2024-01-18] MEDS ORDERED: Morphine Oral Concentrate 20 MG/ML UD SL PRN (15:15)
[2024-01-18] MEDS ORDERED: Ondansetron 4 MG/2 ML VIAL IV PRN (15:15)
[2024-01-18] MEDS ORDERED: Morphine 4 MG/ML VIAL IV PRN (15:15)
[2024-01-18] MEDS ORDERED: Albuterol 0.083% Neb Soln 2.5 MG/3 ML UD IH PRN (15:15)
[2024-01-18] MEDS ORDERED: Haloperidol Lactate 5 MG/ML VIAL IV PRN (15:15)
[2024-01-18] MEDS ORDERED: Carboxymethylcellulose PF Ophth 0.4 ML DROPPERETTE OP PRN (15:15)
--- NOTE | 2024-01-18 15:15 | NUR ---
Ashtyn from [facility] notified that family declined donation. Proceed with comfort care & call [facility] with time of cardiac .
--- NOTE | 2024-01-18 15:42 | NUR ---
supervisor fur floor worker attended pallitative care consult with patient's sons, Nathan in person and Abebe via telephone, along with patient's . Family decided it was time for comfort care and to remove the ventilator. SW spoke with patient's whom expressed he did not want to be present. SW asked if he had support that could be with him. Patient's stated his daughter was coming to stay with him tomorrow. SW offered to call his daughter and patient's stated he would call her. SW met with Nathan again and explained if he needed any support to reach out to her. MOHAMUD offered the hospital tax expert, Nathan stated he was not interested in the tax expert visit.
--- NOTE | 2024-01-18 16:02 | NUR ---
@ 1532 PT EXTUBATED PER COMFORT CARE TO ROOM AIR. FAMILY MEMBER AT BEDSIDE. RN IN ROOM WELL
--- NOTE | 2024-01-18 17:35 | NUR ---
Son has been bedside today with patient. Was recommended that family was contacted due to condition of patient and poor prognosis. At 1400 a conference call was made to Primary DPOA and secondary DPOA, the son who was bedside, and the . All discussed detremental outcome, and had decided to move to comfort care. Comfort care orders were placed by hospitalist and patient was extubated at 1532 with this RN and Respiratory. No complications with extubation, son stayed and has continued to be bedside with patient. Will continue to keep her comfortable.
--- NOTE | 2024-01-18 19:31 | NUR ---
PATIENT CURRENTLY LAYING IN BED, WITH MINIMAL RESPONSES. PATIENT ON COMFORT CARE WITH FAMILY AT BEDSIDE. PEDROZA CATHETER IN PLACE. PERIPHERAL IV'S IN EACH FOREARM.
[2024-01-18] MEDS ORDERED: Scopolamine 1 MG Delivered 3-Day PATCH TD SCH (21:00)
[2024-01-19] VITALS (209 sets, daily range): O2SAT 30–84
--- NOTE | 2024-01-19 04:39 | NUR ---
Spoke with NEN at 0420 to notify TOD of 0401. Kun Mohamud at [facility] do not release patient. NEN will contact family regarding skin donation.
--- NOTE | 2024-01-19 05:58 | NUR ---
TIME OF RECORDED AT 0401, 2 RN'S VERIFIED NO HEART BEAT. FILLING AND PACKING SUPERVISOR CALLED AT 0406. HOSPITALIST CALLED AT 0408.
--- NOTE | 2024-01-19 06:42 | NUR ---
Per Debra at [facility], okay to release patient to home. Patient to go to [place].
== END 2024-01-19 08:00 | disposition expired | DRG 64 ==
LOC: COL.ER 02:51 → ICU 05:27
PROVIDERS: Emergency Medicine; ADMIT Internal Medicine
PROC: 0BH17EZ Insertion of Endotracheal Airway into Trachea, Via Natural or Artificial Opening (ICD-10-PCS; principal; 2024-01-18)
PROC: 5A1935Z Respiratory Ventilation, Less than 24 Consecutive Hours (ICD-10-PCS; 2024-01-18)
DX: I61.9 Nontraumatic intracerebral hemorrhage, unspecified (principal); G93.5 Compression of brain; Z66 Do not resuscitate; I12.9 Hypertensive chronic kidney disease with stage 1 through stage 4 chronic kidney disease, or unspecified chronic kidney disease; E11.22 Type 2 diabetes mellitus with diabetic chronic kidney disease; N18.9 Chronic kidney disease, unspecified; I45.10 Unspecified right bundle-branch block; I49.5 Sick sinus syndrome; R79.89 Other specified abnormal findings of blood chemistry; E11.65 Type 2 diabetes mellitus with hyperglycemia; R29.701 NIHSS score 1; G47.30 Sleep apnea, unspecified; Z51.5 Encounter for palliative care; Z90.89 Acquired absence of other organs; Z88.2 Allergy status to sulfonamides; Z88.8 Allergy status to other drugs, medicaments and biological substances; Z86.718 Personal history of other venous thrombosis and embolism; Z79.01 Long term (current) use of anticoagulants; Z23 Encounter for immunization
CPT/HCPCS: J1630; J1953; J2060; J2270; J2704